=== PATIENT | male | born 1970 | race Caucasian/White ===

== ENCOUNTER → 2023-03-26 | Day surgery (SDC) | payer OTHER ==
[~2023-03-26] MED LIST: DIPRIVAN 200 MG/20 ML IV ONE; Lactated Ringers 1,000 ML IV ONE; Lactated Ringers 1,000 ML IV SCH; ROBINUL ONE; Xylocaine-Mpf 2% 5 Ml Vial ONE
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
[2023-03-26 11:40] VITALS: O2SAT 95
[2023-03-26 11:46] VITALS: BP 134/90; PULSE 63
--- NOTE | 2023-03-26 13:56 | OP ---
SURGERY DATE/TIME: 03/26/2023 1105 PREOPERATIVE DIAGNOSES: 1) Need for screening colonoscopy. 2) Family history of colon cancer. POSTOPERATIVE DIAGNOSES: 1) ASA Class II. 2) Small early sigmoid colon early polyp versus hyperplastic lesion. 3) Good bowel prep. 4) Withdrawal time eight minutes. PROCEDURES: 1) Colonoscopy to cecum. 2) Hot biopsy sigmoid colon polyp x2. SURGEON: Dr. Marshall Otero. ANESTHESIA: MAC. ESTIMATED BLOOD LOSS: Minimal. INDICATIONS: As noted above. Risks and benefits explained in detail but not limited to and consent obtained. DESCRIPTION OF PROCEDURE AND FINDINGS: The patient is taken to the endoscopy room. MAC anesthesia induced. After official time out and no disagreement with planned procedure, digital rectal exam did not reveal any rectal masses. Video colonoscope inserted and passed up through the tortuous sigmoid, descending, transverse and ascending colon around to the cecum. Appendiceal orifice and valve well visualized and photo documented. Prep overall was good. Scope carefully withdrawn over the next eight minutes. No signs of any large polyps, masses or any other obstructing lesions. There were two small early polyps versus hyperplastic lesions in the sigmoid colon removed with hot biopsy forceps. Good hemostasis noted. No signs of any large polyps, masses or obstructing lesions. The prep overall was good. The scope is withdrawn. The patient tolerated the procedure well. There were no immediate complications. Findings discussed with the family out in the waiting area.
== END ==
LOC: SDC 08:28
PROVIDERS: ATTEND Surgery
DX: Z12.11 Encounter for screening for malignant neoplasm of colon (principal); Z80.0 Family history of malignant neoplasm of digestive organs; D12.5 Benign neoplasm of sigmoid colon
CPT/HCPCS: J2704